=== PATIENT | female | born 1960 | race Caucasian/White ===

== ENCOUNTER 2017-06-26 14:50 | Emergency (ER) | payer MEDICAID ==
[2017-06-26] MEDS: IBUPROFEN 600 MG TAB PO (15:54)
== END 2017-06-26 17:35 | disposition home or self-care (01) ==
LOC: E/R 14:50
DX: M79.672 Pain in left foot (principal)
CPT/HCPCS: 73630; 73630-LT; 99283-25

== ENCOUNTER 2017-07-10 18:04 | Emergency (ER) | payer MEDICAID ==
[2017-07-10] MEDS: KETOROLAC 30 MG INJ IM (20:52)
== END 2017-07-10 21:09 | disposition home or self-care (01) ==
LOC: FTE 18:04
DX: M72.2 Plantar fascial fibromatosis (principal)
CPT/HCPCS: 96372; 99284-25

== ENCOUNTER 2018-05-05 11:11 | Emergency (ER) | payer MEDICAID ==
[2018-05-05] MEDS: ONDANSETRON (ODT) 4 MG TAB ODT (13:13)
== END 2018-05-05 13:16 | disposition home or self-care (01) ==
LOC: FTE 11:11
DX: R11.2 Nausea with vomiting, unspecified (principal); R19.7 Diarrhea, unspecified
CPT/HCPCS: 99283; Z7502

== ENCOUNTER 2018-06-23 14:04 | Emergency (ER) | payer MEDICAID ==
[2018-06-23] MEDS: HYDROCODONE/APAP (5/325) TAB PO (16:51)
[2018-06-23] MEDS: KETOROLAC 30 MG INJ IM (16:52)
== END 2018-06-23 18:20 | disposition home or self-care (01) ==
LOC: FTE 14:04
DX: S76.012A Strain of muscle, fascia and tendon of left hip, initial encounter (principal); S20.212A Contusion of left front wall of thorax, initial encounter; W10.9XXA Fall (on) (from) unspecified stairs and steps, initial encounter; Y92.9 Unspecified place or not applicable
CPT/HCPCS: 71100; 73510; 96372; 99284-25

== ENCOUNTER 2018-07-01 15:02 | Emergency (ER) | payer MEDICAID | END 2018-07-01 16:56 | disposition home or self-care (01) | LOC: FTE 16:56 | DX: M54.5 Low back pain (principal) | CPT/HCPCS: 99283; Z7502 ==